=== PATIENT | female | born 1980 | race Caucasian/White ===

== ENCOUNTER 2024-02-20 14:43 | Outpatient (CLI) | payer BC, SELFPAY ==
--- NOTE | 2024-02-20 15:00 | US_ITS ---
Patient: ALEJANDRA CASTLE Facility:?[facility] Patient ID:?[id number] Site Patient ID:?[id number]. Site :?[id number] Study:?US-Thyroid -02/20/2024 3:35:01 PM Ordering Physician:Yasmin Stein Final Report: INDICATION: Thyroid nodule TECHNIQUE: Conventional two-dimensional terry-scale ultrasound of the thyroid gland. COMPARISON: Thyroid ultrasound of 09/22/2022 FINDINGS: In the mid left thyroid lobe is a 2.2 x 1.9 x 1.4 cm TR4 nodule which was previously measured at 2.1 x 1.8 x 1.8 cm. In the inferior left lobe is a 0.6 cm TR4 nodule. In the mid left lobe is a densely calcified shadowing 0.7 cm nodule. In the inferior right thyroid lobe is a 0.5 cm TR3 nodule. The right lobe measures 4.0 x 1.1 x 1.3 cm and the left lobe 5.3 x 1.9 x 2.0 cm. The isthmus measures 2 mm in thickness. IMPRESSION: 2.2 cm TR4 mid left thyroid lobe nodule which was previously measured at 2.1 cm. FNA recommended if not performed previously. ACR TI-RADS: TR1: Benign No FNA TR2: Not Suspicious No FNA TR3: Mildly Suspicious FNA if greater than or equal to 2.5 cm Follow if greater than or equal to 1.5 cm and less than 2.5 cm TR4: Moderately Suspicious FNA if greater than or equal to 1.5 cm Follow if greater than or equal to 1 cm and less than 1.5 cm TR5: Highly Suspicious FNA if greater than or equal to 1 cm Follow if greater than or equal to 0.5 cm and less than 1.0 cm Dictated by Ruy Parada MD @ 02/21/2024 9:09:17 AM Signed by:?Ruy Parada MD @02/21/2024 9:09:17 AM (Electronic Signature)
== END 2024-02-20 14:44 | disposition home or self-care (01) ==
LOC: US 14:45
PROVIDERS: Visit Provider Internal Medicine Endocrinology, Diabetes & Metabolism
DX: E04.1 Nontoxic single thyroid nodule (principal)
CPT/HCPCS: 76536